=== PATIENT | female | born 1960 | race Caucasian/White ===

== ENCOUNTER → 2016-06-06 | Outpatient (REF) | payer OTHER | LOC: M LAB REF 16:24 | PROVIDERS: ATTEND Physician Assistant | DX: J03.90 Acute tonsillitis, unspecified (principal) ==

== ENCOUNTER → 2016-08-18 | Outpatient (REF) | payer OTHER | LOC: M LAB REF 12:28 | PROVIDERS: ATTEND Physician Assistant | DX: N39.0 Urinary tract infection, site not specified (principal) ==

== ENCOUNTER → 2019-02-27 | Outpatient (REF) | payer OTHER | LOC: M SFHCLERA 11:34 | PROVIDERS: ATTEND Physician Assistant | DX: R30.0 Dysuria (principal) ==

== ENCOUNTER → 2019-03-28 | Outpatient (REF) | payer OTHER ==
[2019-03-28 16:36] LABS: PLATELET COUNT, AUTOMATED 224 10^3/uL (150-450)
[2019-03-28 16:46] LABS: PROTHROMBIN TIME 12.9 SECONDS (11.8-14.0)
[2019-03-28 16:47] LABS: PARTIAL THROMBOPLASTIN TIME 30.1 SECONDS (25.0-38.4)
== END ==
LOC: M LABDRAW1 14:58
PROVIDERS: ATTEND Physician Assistant
DX: Z01.812 Encounter for preprocedural laboratory examination (principal); M47.817 Spondylosis without myelopathy or radiculopathy, lumbosacral region

== ENCOUNTER → 2020-07-11 | Outpatient (CLI) | payer BC, OTHER ==
--- NOTE | 2020-07-12 11:23 | REPVR ---
PROCEDURE INFORMATION: Exam: MR Lumbar Spine Without Contrast Exam date and time: 07/11/2020 4:02 PM Age: 60 years old Clinical indication: Low back pain; Additional info: Lumbar spondylosis TECHNIQUE: Imaging protocol: Multiplanar magnetic resonance images of the lumbar spine without intravenous contrast. COMPARISON: No relevant prior studies available. FINDINGS: Vertebrae: No acute compression fracture is seen. There is 6 mm of anterolisthesis of L4 on L5 due to severe facet arthropathy. Bone marrow signal is heterogeneous but within normal limits. Spinal cord: The conus medullaris terminates at the L1 level. There is no evidence of arachnoiditis or cauda equina compression. L1-L2: No significant disc disease. No significant spinal stenosis or neural foraminal narrowing. L2-L3: There is minimal diffuse circumferential disc bulging and mild facet arthropathy. There is no significant spinal canal or neural foraminal stenosis. L3-L4: There is mild diffuse circumferential disc bulging, severe facet arthropathy, and thickening of the ligamentum flavum. This is causing mild spinal canal stenosis, moderate left neural foraminal narrowing, and mild/moderate right neural foraminal narrowing. L4-L5: There is disc dehydration, mild diffuse circumferential disc bulging, severe facet arthropathy, and thickening of the ligamentum flavum. This is causing moderate spinal canal stenosis, moderate narrowing of the subarticular recesses, and mild bilateral neural foraminal narrowing. L5-S1: A far right lateral disc osteophyte complex is noted. There is no spinal canal or neural foraminal stenosis. Soft tissues: Unremarkable. IMPRESSION: Degenerative changes of the lumbar spine as discussed above Electronically signed by: Perry Carter On 07/12/2020 11:22:34 AM
== END ==
LOC: M PLARAD 15:12
PROVIDERS: ATTEND Physical Medicine & Rehabilitation
DX: M47.817 Spondylosis without myelopathy or radiculopathy, lumbosacral region (principal)